=== PATIENT | male | born 1935 | race Caucasian/White ===

== ENCOUNTER 2020-08-06 11:08 | Emergency (ER) | payer MEDICARE ==
[~2020-08-06] VITALS: Ht 182.9 cm; Wt 99.8 kg
[2020-08-06 11:08] VITALS: BP_SYST 132
--- NOTE | 2020-08-06 11:08 | NUR ---
Placed in room 3. Placed on public health sanitarian, blood pressure machine and pulse oximeter. To gown for exam. Side rails up. Report given to LAYTON Osei.
--- NOTE | 2020-08-06 11:10 | NUR ---
ER at bedside examining patient.
--- NOTE | 2020-08-06 11:15 | NUR ---
ekg done and given to
--- NOTE | 2020-08-06 11:20 | NUR ---
pt arrives via [facility] after having a near syncopal episode at home. pt states that he has been vomiting at home. Pt is currently afebrile. AAOx4. IV site is to the right hand 20g, patent and infusing well.
[2020-08-06] MEDS ORDERED: ONDANSETRON HCL 4 MG/2 ML VIAL IVP ONE (11:30)
--- NOTE | 2020-08-06 11:40 | NUR ---
medicated the pt w/ Zofran per order
--- NOTE | 2020-08-06 11:43 | NUR ---
pt getting labs drawn at the bedside
[2020-08-06 11:54] LABS: BASOPHILS # (AUTO) 0.1 K/uL (0.0-0.2); BASOPHILS % (AUTO) 0.7 % (0.0-2.0); EOSINOPHILS # (AUTO) 0.2 K/uL (0.0-0.4); EOSINOPHILS % (AUTO) 1.5 % (0.0-4.0); HEMATOCRIT 43.7 % (36-54); HEMOGLOBIN 14.2 g/dL (14.0-18.0); LYMPHOCYTES # (AUTO) 0.7 K/uL (1.0-5.5); LYMPHOCYTES % (AUTO) 5.7 % (20.5-51.5); MEAN CORPUSCULAR HEMOGLOBIN 24 pg (27-31); MEAN CORPUSCULAR HGB CONC 33 % (32-36); MEAN CORPUSCULAR VOLUME 73 fL (79.0-98.0); MONOCYTES # (AUTO) 0.9 K/uL (0.0-1.0); MONOCYTES % (AUTO) 6.9 % (1.7-9.3); NEUTROPHILS # (AUTO) 10.9 K/uL (1.8-7.7); NEUTROPHILS % (AUTO) 85.2 % (40.0-70.0); PLATELET COUNT (AUTO) 106 K/uL (130-430); RED BLOOD CELL COUNT(AUTO) 5.99 MIL/uL (4.2-6.2); RED CELL DISTRIBUTION WIDTH 15.7 % (9.0-15.0); WHITE BLOOD COUNT (AUTO) 12.8 K/uL (4.8-10.8)
[2020-08-06 12:06] LABS: ANION GAP 12 (5-15); CALCIUM 9.4 mg/dL (8.4-11.0); CHLORIDE 103 mmol/L (98-107); CREATININE 1.32 mg/dL (0.55-1.30); GLUCOSE 170 mg/dL (70-99); POTASSIUM 3.3 mmol/L (3.5-5.1); SODIUM SERUM 140 mmol/L (136-145); UREA NITROGEN, BLOOD 18 mg/dL (8-21)
[2020-08-06 12:12] LABS: ALANINE AMINOTRANSFERASE 26 U/L (12-78); ALBUMIN 4.3 g/dL (3.4-4.8); ASPARTATE AMINOTRANSFERASE 22 U/L (10-37); TOTAL BILIRUBIN 0.9 mg/dL (0.0-1.0)
[2020-08-06 14:02] VITALS: BP_SYST 142
--- NOTE | 2020-08-06 14:03 | NUR ---
Patient given written and verbal discharge instructions and verbalizes understanding. ER MD discussed with patient the results and treatment provided. Patient in stable condition. ID arm band removed. IV catheter removed intact and dressing applied, no active bleeding. Rx of ZOFRAN given. Patient educated on pain management and to follow up with PMD. Pain Scale 0/10. Opportunity for questions provided and answered. Medication side effect fact sheet provided.
== END 2020-08-06 14:02 | disposition home or self-care (01) ==
LOC: SED 11:08
DX: K29.00 Acute gastritis without bleeding (principal)
CPT/HCPCS: 36415; 71045; 80053; 82550; 82962; 83880; 84484; 85025; 93005; 96374; 99285; J2405